=== PATIENT | female | born 1955 | race Caucasian/White ===

== ENCOUNTER → 2016-12-05 | Outpatient (CLI) | payer BC ==
[~2016-12-05] MED LIST: BUPR-83 PO; CALC500C70 PO; GABA-112 PO; MULT-506 PO
[2016-12-05 11:37] LABS: PFT COL EPI 200 SECONDS (80-184)
[2016-12-05 12:03] LABS: PFT COL ADP 160 SECONDS (56-102)
== END | disposition home or self-care (01) ==
LOC: C.LAB 10:43
PROVIDERS: ATTEND Family Medicine
DX: D69.1 Qualitative platelet defects (principal)

== ENCOUNTER → 2017-06-20 | Outpatient (CLI) | payer OTHER ==
--- NOTE | 2017-06-21 14:40 | MAMMOGRAPHY REPORT ---
BILATERAL DIGITAL SCREENING MAMMOGRAM TOMOSYNTHESIS WITH CAD: 06/20/2017 TECHNIQUE: Breast tomosynthesis in addition to standard 2D mammography was performed. Current study was also evaluated with a Computer Aided Detection (CAD) system. COMPARISON: Comparison is made to exams dated: 02/10/2016 mammogram, 01/27/2015 mammogram, 01/21/2014 ma mmogram, 06/20/2011 mammogram, 02/23/2010 mammogram - [facility], and 04/25/2007. BREAST COMPOSITION: There are scattered areas of fibroglandular density in both breasts. FINDINGS: No suspicious masses, calcifications, or areas of architectural distortion are noted in ei ther breast. There has been no significant interval change compared to prior exams. IMPRESSION: ACR BI-RADS CATEGORY 1: NEGATIVE There is no mammographic evidence of malignancy. A 1 year screening mammogram is recommended. The pa tient will receive written notification of the results. Approximately 10% of breast cancers are not detected with mammography. A negative mammographic report should not delay biopsy if a clinically suggestive mass is present. Mary Kay Cardenas M.D. ah/:06/20/2017 16:38:34 Cost Accounting Clerk: Ana Maria CLEMENT(Jeremi)(Maria C), [facility] letter sent: Normal 1/2 BI-RADS Code: ACR BI-RADS Category 1: Negative
== END | disposition home or self-care (01) ==
LOC: C.MAMM 16:25
PROVIDERS: ATTEND Family Medicine
DX: Z12.31 Encounter for screening mammogram for malignant neoplasm of breast (principal)

== ENCOUNTER 2019-09-08 12:36 | Inpatient (IN) ==
--- NOTE | 2019-09-08 13:11 | Emergency Department Note ---
Impression & Plan Atypical chest pain, Elevated troponin ED Provider Note NAME: WILLOW TOLBERT AGE: 63 SEX: F : 1955 ARRIVES VIA: Walk-In INFORMANT: Patient, ED PROVIDER(S): Lisandro Bell MD Chief Complaint: Chest pain HPI: Patient presents with a referral from the primary care provider as well as for chest pains. Patient states her chest pain began at 10 AM. It was central with radiation to the left neck and shoulder. ROS: See HPI for pertinent positives and negatives. A total of 10 systems were reviewed and otherwise negative. Past medical history: See below Surgical history: See below Social history: See below Physical Exam: GENERAL: Well appearing, well nourished, NAD, non-toxic. Wearing glasses and a mask. EYE EXAM: Normal conjunctiva. PERRL, no anisocoria and EOM's grossly intact w/o pain. NECK: Supple, no nuchal rigidity, no adenopathy, non-tender. No signs of meningismus. LUNGS: Clear to auscultation. Normal chest wall mechanics. HEART: NSR, no MRG. ABDOMEN: Abdomen soft, non-tender, normo-active bowel sounds, no masses, no rebound or guarding. BACK: No CVA TTP. SKIN: No rashes and no bruising. UPPER EXTREMITIES: Upper extremities are grossly normal. LOWER EXTREMITIES: Grossly normal, no edema. Negative Homans sign bilaterally. NEURO EXAM: A&O x3, cranial nerves II-XII grossly intact, normal speech, moves all 4 extremities on command w/o issue. Differential diagnoses: Cardiac ischemia, aortic dissection, pulmonary embolism, pneumothorax, pneumonia, pericarditis, myocarditis, esophageal rupture, GERD, cholecystitis, pancreatitis, musculoskeletal, as well as other pathologies. Course: Patient was seen and evaluated the bedside. A full history and physical exam was performed. Patient was informed of her findings. She did give me permission to speak with the niece. I did discuss the patient's current course of care with her niece. I did speak the on-call hospitalist and the patient was to be admitted. I did speak with Dr. Duarte without any cardiology who recommended to continue management but would defer heparin at this time unless the patient develops active chest pain, dynamic EKG changes, and or rising troponin. EKG: Indication: Chest pain Normal sinus rhythm, rate of 74, normal intervals, normal axis, no ST changes. No change from April 19, 2016. Imaging Studies: Radiology results as stated below per my review in the radiologist's interpretat ion: XR chest 1V portable CLINICAL HISTORY: 63 years-old Female presenting with Chest Pain. TECHNIQUE: Portable upright AP view of the chest was obtained. COMPARISON: None. FINDINGS: Cardiomediastinal silhouette normal. No focal opacity. No large effusion or pneumothorax. Degenerative changes of the thoracic spine. Upper abdomen normal. IMPRESSION: 1. No acute cardiopulmonary disease. ACT 112: Negative or not required by law. Cardiac monitoring: An order was placed for continuous cardiac monitoring. The monitor shows a rate of 80 with sinus rhythm. MDM: Patient was seen and evaluated the bedside. The patient did present for a brief episode of chest pain earlier this morning. The patient currently is chest pain-free. Blood work was obtained along with an EKG troponin and chest x-ray. Patient did have an elevated troponin. Patient was given full dose aspirin. Given the patient's elevated troponin with concerning story and risk factors believe the patient would benefit from continued cardiac enzyme trending. I did speak the on-call hospitalist as well as the on-call program coordinator executive education. No heparin at this time unless the patient has a change in symptoms. The patient was esteban bsequently admitted to the medicine service. 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 Feels Safe at Home: Yes Smoking Status: Never smoker Hx Alcohol Use: No Physical Activity Frequency: 3-4 Times per Week Physical Activity Frequency Comment: walks, but now has hurt knee Allergies Allergies Allergy/AdvReac Type Severity Reaction Status Date / Time iodine Allergy Mild rash Verified 09/08/19 13:44 Home Meds Home Medications Medication Instructions Recorded Confirmed cholecalciferol (vitamin D3) 4,000 4,000 units PO QAM 05/27/19 09/08/19 unit capsule calcium carbonate [Calcium 500] 500 mg PO QAM 09/08/19 09/08/19 pediatric multivitamin 1 tab PO HS 09/08/19 09/08/19 Results & Data (ED) Vital Signs Vital Signs - 24 hr 09/08/19 12:40 09/08/19 12:53 09/08/19 12:54 Temperature 36.7 C Temperature Source Oral Pulse Rate 76 77 Pulse Rate from SpO2 Sensor 77 Pulse Rhythm Regular Pulse Strength Normal Respiratory Rate 18 19 Respiratory Effort / Characteristics Non-Labored Spontaneous Respiratory Depth Normal Respiratory Pattern Regular Blood Pressure 161/70 H 158/69 H Blood Pressure Mean 100 97 Blood Pressure Position Sitting Pulse Oximetry 98 97 95 Oxygen Delivery Method Room Air Room Air Sepsis Recent Fever Within 48 Hours No Sepsis New/Unexplained Change in Mental Status No Sepsis Action Taken by Nursing No Action Required 09/08/19 12:58 09/08/19 13:00 09/08/19 13:30 Temperature Temperature Source Pulse Rate 80 82 75 Pulse Rate from SpO2 Sensor 78 71 76 Pulse Rhythm Pulse Strength Respiratory Rate 17 20 16 Respiratory Effort / Characteristics Respiratory Depth Respiratory Pattern Blood Pressure 134/72 138/66 Blood Pressure Mean 97 88 Blood Pressure Position Pulse Oximetry 96 96 96 Oxygen Delivery Method Sepsis Recent Fever Within 48 Hours Sepsis New/Unexplained Change in Mental Status Sepsis Action Taken by Nursing 09/08/19 14:00 09/08/19 14:30 Temperature Temperature Source Pulse Rate 81 80 Pulse Rate from SpO2 Sensor 79 78 Pulse Rhythm Pulse Strength Respiratory Rate 20 20 Respiratory Effort / Characteristics Respiratory Depth Respiratory Pattern Blood Pressure 150/88 H 161/76 H Blood Pressure Mean 106 95 Blood Pressure Position Pulse Oximetry 97 98 Oxygen Delivery Method Sepsis Recent Fever Within 48 Hours Sepsis New/Unexplained Change in Mental Status Sepsis Action Taken by Longterm Medications Current Medication List: was personally reviewed by me Laboratory Data Attestation: I reviewed the patient's lab results. Result diagrams: 09/08/19 13:10 09/08/19 13:10 Lab Results 09/08/19 09/08/19 09/08/19 Range/Units 13:10 13:10 13:10 WBC 5.34 (4.8-10.8) K/uL RBC 4.94 (4.2-5.4) M/uL Hgb 15.1 (12.0-16.0) g/dL Hct 44.6 (37-47) % MCV 90.3 (80-100) fL MCH 30.6 (25-34) pg MCHC 33.9 (32-36) g/dL RDW Std Deviation 43.7 (36.4-46.3) fL RDW Coeff of Arabella 13.3 (11.5-14.5) % Plt Count 215 (130-400) K/uL MPV 11.1 H (7.4-10.4) fL Immature Gran % (Auto) 0.2 % Neut % (Auto) 67.2 % Lymph % (Auto) 24.7 % Daniels % (Auto) 6.2 % Eos % (Auto) 1.3 % Baso % (Auto) 0.4 % Immature Gran # (Auto) 0.01 (0.00-0.02) K/uL Neut # (Auto) 3.59 (1.4-6.5) K/uL Lymph # (Auto) 1.32 (1.2-3.4) K/uL Daniels # (Auto) 0.33 (0.11-0.59) K/uL Eos # (Auto) 0.07 (0-0.5) K/uL Baso # (Auto) 0.02 (0-0.2) K/uL PT 10.6 (9.0-12.0) Seconds INR 1.0 (0.9-1.1) APTT 27.5 (21.0-31.0) Seconds PTT Ratio 1.0 Sodium 141 (136-145) mmol/L Potassium 3.9 (3.5-5.1) mmol/L Chloride 109 H (98-107) mmol/L Carbon Dioxide 31 (21-32) mmol/L Anion Gap 1.0 L (3-11) BUN 14 (7-18) mg/dl Creatinine 0.86 (0.6-1.2) mg/dl Est Cr Clr Drug Dosing 72.5 ml/min Est GFR ( Amer) 84.5 Est GFR (Non-Af Amer) 72.9 BUN/Creatinine Ratio 15.9 (10-20) Glucose 107 H (70-99) mg/dl Calcium 9.3 (8.5-10.1) mg/dl Total Bilirubin 0.3 (0.2-1) mg/dl AST 12 L (15-37) U/L ALT 20 (12-78) U/L Alkaline Phosphatase 99 (45-117) U/L Troponin I 0.137 H* (0-0.045) ng/ml Total Protein 6.9 (6.4-8.2) gm/dl Albumin 3.5 (3.4-5.0) gm/dl Globulin 3.4 (2.5-4.0) gm/dl Albumin/Globulin Ratio 1.0 (0.9-2) Lipase 85 (73-393) U/L Administered Medications Discontinued Medications Aspirin (Aspirin) 324 mg PO NOW STA Stop: 09/08/19 13:57 Last Admin: 09/08/19 14:03 Dose: 324 mg Documented by: [id number] Blood Pressure Blood Pressure Findings: Elevated blood pressure Blood Pressure Disposition: further management by hospitalist Discharge Plan Visit Data *Final* Discharge Date/Time: 09/08/19 14:51 Chief Complaint: Chest Pain Stated Complaint: chest pain ED Provider: Lisandro Bell Discharge Problem: Atypical chest pain, Elevated troponin Patient Disposition: Admitted As Inpatient Discharge Instructions Interventions: ED Discharge Assessment Last Done: 09/08/19 14:51
[2019-09-08 13:24] LABS: Basophils # (auto) 0.02 K/uL (0-0.2); Basophils % (auto) 0.4 %; Eosinophils # (auto) 0.07 K/uL (0-0.5); Eosinophils % (auto) 1.3 %; Hematocrit (blood only) 44.6 % (37-47); Hemoglobin 15.1 g/dL (12.0-16.0); Immature Granulocytes # (auto) 0.01 K/uL (0.00-0.02); Immature Granulocytes % (auto) 0.2 %; Lymphocytes # (auto) 1.32 K/uL (1.2-3.4); Lymphocytes % (auto) 24.7 %; Mean Corpuscular Hemoglobin 30.6 pg (25-34); Mean Corpuscular Hgb Conc 33.9 g/dL (32-36); Mean Corpuscular Volume 90.3 fL (80-100); Mean Platelet Volume 11.1 fL (7.4-10.4); Monocytes # (auto) 0.33 K/uL (0.11-0.59); Monocytes % (auto) 6.2 %; Neutrophils # (auto) 3.59 K/uL (1.4-6.5); Neutrophils % (auto) 67.2 %; Platelet Count 215 K/uL (130-400); RDW Coefficient of Variation 13.3 % (11.5-14.5); RDW Standard Deviation 43.7 fL (36.4-46.3); Red Blood Count 4.94 M/uL (4.2-5.4); White Blood Count 5.34 K/uL (4.8-10.8)
--- NOTE | 2019-09-08 13:33 | Electrocardiogram Report ---
Test Reason : Blood Pressure : / mmHG Vent. Rate : 074 BPM Atrial Rate : 074 BPM P-R Int : 154 ms QRS Dur : 094 ms QT Int : 368 ms P-R-T Axes : 047 028 057 degrees QTc Int : 408 ms Normal sinus rhythm Normal ECG When compared with ECG of 19-APR-2016 12:35, No significant change was found Confirmed by Mati Duarte ([id number]) on 09/08/2019 1:32:49 PM Referred By: SELF Confirmed By:Mati Duarte
[2019-09-08 13:36] LABS: Partial Thromboplastin Time 27.5 Seconds (21.0-31.0); Prothrombin Time 10.6 Seconds (9.0-12.0)
[2019-09-08 13:41] LABS: Albumin Level 3.5 gm/dl (3.4-5.0); BUN Creatinine Ratio 15.9 (10-20); Calcium 9.3 mg/dl (8.5-10.1); Creatinine Clr Calc Pharmacy 72.5 ml/min; Est GFR (African American) 84.5; Est GFR (Non-African American) 72.9; Potassium 3.9 mmol/L (3.5-5.1)
[2019-09-08 13:49] LABS: Bilirubin,Total 0.3 mg/dl (0.2-1); Globulin 3.4 gm/dl (2.5-4.0); Total Protein 6.9 gm/dl (6.4-8.2); Troponin I 0.137 ng/ml (0-0.045)
[2019-09-08] MEDS ORDERED: NITROGLYCERIN SL 0.4 MG/TAB TAB SL PRN ×2 (13:56→15:34)
[2019-09-08] MEDS ORDERED: ASPIRIN CHEW 324 MG PO STA (13:56)
--- NOTE | 2019-09-08 14:00 | XRay Report ---
XR chest 1V portable CLINICAL HISTORY: 63 years-old Female presenting with Chest Pain. TECHNIQUE: Portable upright AP view of the chest was obtained. COMPARISON: None. FINDINGS: Cardiomediastinal silhouette normal. No focal opacity. No large effusion or pneumothorax. Degenerativ e changes of the thoracic spine. Upper abdomen normal. IMPRESSION: 1. No acute cardiopulmonary disease. ACT 112: Negative or not required by law. Electronically signed by: Zack Rainey M.D. 09/08/2019 1:59 PM
[2019-09-08] MEDS ORDERED: ALUMINUM/MAGNESIUM SUSP 18 ML, LIDOCAINE HCL VISCOUS 2% 6 ML, BARCODE IDENTIFIER 1 EA PO ONE ×2 (14:27→20:34)
--- NOTE | 2019-09-08 14:41 | History & Physical Report ---
Date of Service September 08, 2019 Assessment & Plan (1) Chest pain: Concerning given pt's age and FH Trop mildly elevated at 0.137, serials pending EKG WNL CXR WNL CBC, PRP, lipase WNL ED spoke with Dr. Duarte who recs for monitoring. No heparin unless repeat sx or further increase in trop c/s pending If trop is stable, pt should likely have ECHO vs stress ECHO tomorrow, will not order until serials trops resulted Trial of GI cocktail (2) DVT prophylaxis: SCDs History of Present Illness Primary Care Provider: Dariel Munoz MD 63 y/o F c/o chest pain. Pt states she was working from home today, which she has been doing the last few weeks. She noted some L shoulder pain that moved into her arm. She thought it was related to the fact that her home "office" is working on a laptop while sitting on her couch rather than her usual office desk set up. She tried to move her arm around and then had onset of pain into her entire jaw. This became more alarming to her so she decided she should come to the ED. While she was upstairs getting dressed to come here, she had onset of central to L sided chest pain. This last about 5 minutes and occurred around 10:00a. She came to the ED and had no further pain until about 2 minutes AFTER I palpated pt's chest. She states it was more of a burning sensation. Pt states she ate "a lot of oreos" last night just prior to bed. She states she eats these often, but not in that volume. Pt has never had chest pain prior. She does state that last week she had some pain along the L side of her neck into her shoulder, but that felt muscular to her. Pt states that about 2-3x/year she will have L sided jaw pain that she thinks is dental related. She takes a tylenol and it resolves. She has never had pain to her entire jaw. Pt denies fever, SOB, abd pain, n/v/c/d, LE pain or swelling. 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 Feels Safe at Home: Yes Smoking Status: Never smoker Hx Alcohol Use: No Physical Activity Frequency: 3-4 Times per Week Physical Activity Frequency Comment: walks, but now has hurt knee Review of Systems Review of Systems: Pertinent positives and negatives reviewed in HPI--all others negative Physical Exam Constitutional: WD/WN, vitals as above Eyes: normal visual packer by confrontation and + anicteric sclerae Neck: normal visual inspection and trachea midline Respiratory: normal respiratory effort, lungs clear to auscultation Cardiovascular: Rate/Rhythm: regular rate and regular rhythm Chest (Breasts): Additional Comments: chest wall nonTTP Gastrointestinal (Abdomen): Inspection/Auscultation: abdomen not distended Percussion/Palpation: abdomen soft; abdomen nontender Musculoskeletal: Head/Neck/Chest: normocephalic and head atraumatic negative for edema, peripheral pulses intact L trap/neck nonTTP Skin: no rashes, warm and dry Neurologic: awake; not confused Speech / Cognition: normal speech Psychiatric: A+Ox3, euthymic affect Results & Data Results & Data ([facility]) Vital Signs (Past 12 Hours) Vital Signs Temp Pulse Resp BP Pulse Ox 09/08/19 14:00 81 20 150/88 H 97 09/08/19 13:30 75 16 138/66 96 09/08/19 13:00 82 20 134/72 96 09/08/19 12:58 80 17 96 09/08/19 12:54 95 09/08/19 12:53 77 19 158/69 H 97 09/08/19 12:40 36.7 C 76 18 161/70 H 98 Diagnostic Findings CXR: neg for acute ECG Rhythm: normal sinus Code Status & VTE Plan Code Status Full code VTE Prophylaxis Plan VTE Prophylaxis will be ordered: Yes PG Care Time/CCT Total # of Minutes Spent Total Time Spent with Patient: Total time spent is greater than 50% in coordination of care (as documented) at patient's floor/unit and/or counseling patient: Coding Level of Care Code 34523 OBS Care - Level 3 Diagnoses Chest pain R07.9 DVT prophylaxis Z29.9
[2019-09-08] MEDS ORDERED: ONDANSETRON INJ 2 MG/ML 2 ML VIAL IV PRN (15:34)
[2019-09-08] MEDS ORDERED: MAGNESIUM HYDROXIDE SUSP 30 ML UDC PO PRN (15:34)
[2019-09-08] MEDS ORDERED: ACETAMINOPHEN 325 MG TAB PO PRN (15:34)
[2019-09-08] MEDS ORDERED: Heparin IV Standard *NO* Bolus IV ONE (20:36)
[2019-09-08] MEDS ORDERED: HEPARIN SODIUM/DEXTROSE 25,000 UNITS/500 ML BAG IV SCH (20:45)
[2019-09-08] MEDS ORDERED: FLINTSTONES COMPLETE CHEWABLE TAB PO SCH (21:00)
[2019-09-09 04:02] LABS: Chol HDL Ratio 5; Cholesterol 187 mg/dl (0-200); HDL Cholesterol 42 mg/dl; LDL Cholesterol Calculated 116 mg/dl; Triglycerides 143 mg/dl (0-150); VLDL Cholesterol 29 mg/dl
[2019-09-09 04:12] LABS: Partial Thromboplastin Ratio 3.5
[2019-09-09 04:52] LABS: Partial Thromboplastin Time 98.1 Seconds (21.0-31.0)
[2019-09-09 05:50] LABS: Estimated Average Glucose 105 mg/dl; Hemoglobin A1C 5.3 % (4.5-5.6)
[2019-09-09] MEDS ORDERED: CHOLECALCIFEROL 1,000 UNITS 25 MCG TAB PO SCH (09:00)
[2019-09-09] MEDS ORDERED: CALCIUM CARBONATE 1250MG TAB PO SCH (09:00)
--- NOTE | 2019-09-09 09:21 | XCELERA ---
[id number] \\[email or web address]\PDF_[id number]
--- NOTE | 2019-09-09 11:31 | Cardiology Consultation ---
Date of Consultation September 09, 2019 Assessment & Plan (1) Atypical chest pain: The patient's description of chest discomfort is not consistent with classic angina pectoris. However, we will proceed with stress echocardiogram realizing her elevated cardiac markers. (2) Elevated troponin: Mild elevation is of uncertain clinical significance. Would discontinue heparin. (3) Tricuspid regurgitation: Mild in degree on current echocardiogram. History of Present Illness Attending Physician: Olayinka Lim DO History of Present Illness Mrs. Restrepo is a 63 yo female admitted yesterday with a chest pain syndrome. This consultation was ordered to assist in her cardiac management. The patient was in her usual state of health until the morning of presentation when she had the abrupt onset of a substernal chest pressure. Total duration over discomfort was 5 minutes. There were no associated symptoms such as shortness of breath, nausea, vomiting, or diaphoresis. The discomfort occurred while she was at rest. The patient has never experienced exertional angina pectoris or limiting dyspnea. She further denies syncope, presyncope, PND, orthopnea, palpitations, lower extremity edema, and claudication. The patient has never known of a cardiac event. She has never had a cardiac catheterization or stress test. Currently, patient is resting comfortably at the bedside and without complaints. Past medical and surgical history 1. Vitamin-D deficiency 2. Cystocele 3. History of ITP-age 43 4. 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 Feels Safe at Home: Yes Safety Concerns: Feels Safe At This Time Smoking Status: Never smoker Hx Alcohol Use: No Hx Substance Use: No Physical Activity Frequency: 3-4 Times per Week Physical Activity Frequency Comment: walks, but now has hurt knee Physical Exam Physical Exam: In general this is a well-developed well-nourished white female in no acute distress. HEENT exam is negative. Neck is supple with full carotid upstrokes. There are no carotid bruits. Jugular venous pressure is flat at 90. There is no thyromegaly. Cardiovascular exam reveals a regular rhythm with a normal S1 and S2. No S3, S4, or murmurs are noted. Lungs are clear without rales, rhonchi, or wheezes. Abdomen is soft and nontender without bru its. Extremities reveal intact radial artery and posterior tibial pulses bilaterally. There is no peripheral edema. Results & Data ([facility]) Vital Signs (Past 12 Hours) Vital Signs Temp Pulse Pulse Resp BP Pulse Ox 09/09/19 07:45 88 09/09/19 07:34 36.8 C 65 18 151/90 H 97 09/09/19 04:38 36.6 C 64 17 157/78 H 96 09/08/19 23:50 36.7 C 63 18 151/84 H 96 Laboratory Results CBC notes a hemoglobin of 15.1, hematocrit 44.6, white count 5.3, platelet count [id number]. Electrolytes notice sodium of 141, potassium 3.9, chloride 109, bicarb 31, BUN 14, creatinine 0.86, glucose of 107. Initial troponin I level was 0.137 with follow-up values of 0.218 and 0.125. LDL cholesterol is 116 with an HDL of 42. Diagnostic Findings EKG notes normal sinus rhythm without abnormalities. Echocardiogram notes normal left ventricular systolic function without wall motion abnormalities. Left ventricular ejection fraction is 60-65%. There is borderline LVH and mild tricuspid regurgitation. Chest x-ray shows no acute disease. PG Care Time/CCT Total # of Minutes Spent Total Time Spent with Patient: Total time spent is greater than 50% in coordination of care (as documented) at patient's floor/unit and/or counseling patient: Coding Level of Care Code 74747 Inpt Consult Level 4 Diagnoses Atypical chest pain R07.89 Elevated troponin R79.89 Tricuspid regurgitation I07.1
--- NOTE | 2019-09-09 13:13 | XCELERA ---
[id number] \\[email or web address]\PDF_[id number]
--- NOTE | 2019-09-09 16:14 | Discharge Summary ---
Date of Service September 09, 2019 Admission HPI Per Admitting Provider 63 y/o F c/o chest pain. Pt states she was working from home today, which she has been doing the last few weeks. She noted some L shoulder pain that moved into her arm. She thought it was related to the fact that her home "office" is working on a laptop while sitting on her couch rather than her usual office desk set up. She tried to move her arm around and then had onset of pain into her entire jaw. This became more alarming to her so she decided she should come to the ED. While she was upstairs getting dressed to come here, she had onset of central to L sided chest pain. This last about 5 minutes and occurred around 10:00a. She came to the ED and had no further pain until about 2 minutes AFTER I palpated pt's chest. She states it was more of a burning sensation. Pt states she ate "a lot of oreos" last night just prior to bed. She states she eats these often, but not in that volume. Pt has never had chest pain prior. She does state that last week she had some pain along the L side of her neck into her shoulder, but that felt muscular to her. Pt states that about 2-3x/year she will have L sided jaw pain that she thinks is dental related. She takes a tylenol and it resolves. She has never had pain to her entire jaw. Pt denies fever, SOB, abd pain, n/v/c/d, LE pain or swelling. Principal Diagnosis Chest pain, atypical Discharge Exam Constitutional WD/WN, vitals as above Eyes PERRL, conjunctivae normal, anicteric sclerae ENMT external ear and nose normal, oropharynx normal Neck trachea midline, no thyromegaly Respiratory normal respiratory effort, lungs clear to auscultation Cardiovascular RRR, no murmur, no edema Gastrointestinal (Abdomen) normal bowel sounds, soft, nontender, no hepatosplenomegaly Musculoskeletal no cyanosis or clubbing, extremities motor strength 5/5 Skin no rashes, warm and dry Neurologic patellar DTR's 2+ bilat, sensation intact and PERRL, EOMI, accommodation nl, no face palsy, no dysarthria Psychiatric A+Ox3, euthymic affect Lymphatic no cervical or axillary lymphadenopathy Discharge Data Allergies Allergy/AdvReac Type Severity Reaction Status Date / Time iodine Allergy Mild rash Verified 09/08/19 13:44 Consultations 09/08/19 14:10 ED Decision to Admit Stat 09/08/19 15:34 Consult Cardiology Routine Hospital Course (1) Chest pain: 5 minutes of left arm pain, jaw pain and chest pain at home while at rest never had this before EKG without ischemic changes did not have diaphoresis, nausea, dyspnea troponin bumped minimally, from 0.1 to 0.2 and then 0.1 no wall motion changes on echocardiogram d/w Dr. Duarte, agreed to perform stress echo to better risk stratify patient stress echo was normal, patient okay to go home no major risk factors for coronary disease other than her father who at age 61 from [place] BP elevated here but no h/o HTN, non-smoker, HbA1c normal, lipids at goal recommend follow up with PCP in a few months for blood pressure check Total Time Total Time Spent Total Time Spent (In Minutes): 33 minutes Total Time Includes: Examination of the Patient, Discharge Planning, Medication Reconciliation and Communication With Other Providers (Dr Duarte) Discharge Plan Discharge Items Patient Disposition: Home - Self-Care Reason For Visit: ELEVATED TROP Discharge Diagnosis: Chest pain Condition on Discharge: Good Goals: get rest, stay well nourished and well hydrated follow up with Dr. Munoz in three months for blood pressure check Activity: Resume your previous activity Bathing: No limitations Driving/Machine Use: No limitations Weightbearing: Full weightbearing Non-emergency contact: Primary Care Provider Call non-emergency contact if: you have any medication questions, your symptoms worsen and you have a fever Follow-up/Referrals: Dariel Munoz MD [Primary Care Provider] - 12/08/19 12:50 pm (3 months) Diet: Regular Addtl Attending Provider Instructions: Medications: no changes Chest pain, atypical negative stress echocardiogram, no need for further work up very low risk factors for CAD other than a family history of your father having [place] cholesterol is at goal, Hemoglobin A1c normal so you do not have diabetes, do not smoke your blood pressure was a little high while here but this was due to stress, you have no history of hypertension recommend that you follow up with Dr. Munoz in three months for a routine blood pressure check Pending Studies at Discharge: No Stand-Alone Forms: My [facility], Smoking Cessation Medications and DC Order Prescriptions: Continued Vitamin D3 4,000 unit capsule 4,000 units PO QAM RF: 0 pediatric multivitamin Tablet,Chewable 1 tab PO HS RF: 0 calcium carbonate [Calcium 500] 500 mg calcium (1,250 mg) Tablet,Chewable 500 mg PO QAM RF: 0 Discharge Orders: Discharge Order (Routine); Ordered 09/09/19 Ordered By: Olayinka Lim Admission Data Admit Date/Time: 09/08/19 14:33 Attending Provider: Olayinka Lim Admit Provider: Radha Ham Primary Care Provider: Dariel Munoz Other Providers: Radha Ham ; Mati Duarte Other Interventions: Discharge Summary Assessment (RN) Last Done: 09/09/19 11:28 DC Date/Time DO NOT enter until pt leaves facility: 09/09/19 11:56 Coding Level of Care Code 14280 OBS Care - Discharge Diagnoses Chest pain R07.9
== END 2019-09-09 11:56 | disposition home or self-care (01) | DRG 313 ==
LOC: ED 12:36 → SUATTDRO 14:33 → 2E 14:33

== ENCOUNTER 2019-11-26 08:54 | Observation (INO) ==
[2019-11-26] MEDS ORDERED: KETOROLAC TROMETHAMINE 15 MG/ML VIAL IV STA (09:22)
[2019-11-26] MEDS ORDERED: ONDANSETRON INJ 2 MG/ML 2 ML VIAL IV STA (09:22)
[2019-11-26] MEDS ORDERED: SODIUM CHLORIDE 0.9% 1000ML 1,000 ML IV SCH (09:23)
--- NOTE | 2019-11-26 09:32 | Emergency Department Note ---
History of Present Illness General Chief complaint: Vomiting Stated complaint: VOMITING Time Seen by Provider: 11/26/19 09:00 History of Present Illness Maximum Pain Intensity: 8 Patient is a 63-year-old female who generally enjoys good health, who presents the emergency department for evaluation of nausea and vomiting since 1399 yesterday afternoon. Patient reports that on Sunday, 2 days ago, she used an old spaghetti sauce from the refrigerator and a dinner. She ate the food on without problems, had it again for lunch yesterday around 1400, she states that before she was even done eating, she began to feel nauseous experience abdominal bloating, and subsequently began vomiting. She estimates that she has thrown up roughly 30 times, last episode of vomiting was just prior to her leaving her home to come to the emergency department. She reports generalized body and muscle aches, but no fever or chills. No diarrhea. No urinary symptoms. No hematemesis. She had Zofran at home, she tried a total of 4 doses without relief. She notes diffuse abdominal discomfort, but states that it is primarily located in the right lower quadrant, she feels like she "pulled a muscle." She rates her discomfort an 8/10. She denies any other unusual food or water consumption, no sick contacts at home, she has been working remotely and has had no work contacts. She is status post , no other abdominal surgeries. 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 Feels Safe at Home: Yes Smoking Status: Never smoker Hx Alcohol Use: No Hx Substance Use: No Physical Activity Frequency: 3-4 Times per Week Physical Activity Frequency Comment: walks, but now has hurt knee Review of Systems A total of 10 systems reviewed and were otherwise negative Physical Exam Vital Signs Vital Signs - 24 hr 11/26/19 08:58 11/26/19 10:51 11/26/19 11:19 Temperature 37.1 C Temperature Source Oral Pulse Rate 83 Pulse Rate [Finger] 72 63 Pulse Rhythm [Finger] Regular Respiratory Rate 18 16 18 Respiratory Effort / Characteristics Non-Labored Respiratory Depth Normal Blood Pressure 136/90 Blood Pressure [Right Arm] 148/88 H 139/72 Blood Pressure Mean 105 Blood Pressure Mean [Right Arm] 108 94 Blood Pressure Position Sitting Pulse Oximetry 98 100 99 Oxygen Delivery Method Room Air Room Air Room Air Sepsis Recent Fever Within 48 Hours No Sepsis Action Taken by Nursing No Action Required CONSTITUTIONAL: Patient is an ill although nontoxic appearing 63-year-old female who is awake and alert and in no acute distress. EYES: Pupils equal, round, reactive to light and accommodation. EOMs intact without nystagmus. Sclera are anicteric. ENT: Tympanic membranes intact, with normal landmarks. External canals are clear. Oral and nasopharynx are clear. Mucous membranes are dry, no lesions, tongue and gums appear normal. CARDIOVASCULAR: Regular rate and rhythm, with normal S1 and S2, no murmur or gallop or rub is heard. No carotid bruits auscultated. No JVD. Peripheral pulses easily palpable. RESPIRATORY: Breath sounds equal and clear to auscultation without wheezes, rales, or rhonchi heard. Full and equal chest expansion without accessory muscle use or retractions. ABDOMEN: Bowel sounds are present, hypoactive. Abdomen is soft, slightly distended, mildly tender throughout to percussion and moderately tender to palpation throughout the abdomen, with increased discomfort in the right lower quadrant with voluntary guarding. INTEGUMENTARY: No lesions or rash, normal skin turgor. LYMPH: No lymphadenopathy. Course Course The patient was seen and assessed as above. Old records were reviewed. IV lock was initiated and laboratory studies were collected. She was hydrated with a liter bolus of normal saline solution medicated with Zofran 4 mg IV and Toradol 15 mg IV for abdominal discomfort and myalgias. She was made n.p.o. CBC with differential, CMP, lipase and urinalysis were ordered. Patient history and presentation were reviewed with physician and ED work-up was agreed upon. Laboratory studies noted an elevated white count 14,600 with left shift and bands. No anemia. Electrolytes within normal limits. Renal functions are normal. Transaminases are not elevated and lipase is within normal limits. Urine microscopy notes 1+ ketones, 2+ blood, 10-30 WBCs and RBCs 1+ bacteria with greater than 30 epithelial cells indicative of contamination. The patient is not experiencing any UTI symptoms, urine culture is ordered and is pending. Patient was reassessed when her labs had returned. She reported that she was feeling better. 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 Discussed with her that given the location of her discomfort as well as her symptoms, CT scan of the abdomen pelvis with IV contrast was appropriate. She has an allergy to topical iodine, to the best of her knowledge she has never had a CT scan with IV contrast. The patient was premedicated with Solu-Medrol 125 mg IV, Benadryl 50 mg IV and Pepcid [address] scan of the abdomen and pelvis with IV contrast was obtained, patient tolerated the IV contrast without difficulty or symptoms. CT scan findings are consistent with acute appendicitis, no evidence for free air, abscess or perforation. No other acute findings in the abdomen or pelvis. CT scan findings were reviewed with the patient, she was discussed with general surgery, Dr. Penny and Liya Meza PA-C. They will take her to the OR later today for surgical intervention. Administered Medications Ioversol (Optiray 320 100ml) 94 ml IV ONCE PRN PRN Reason: Interaction Checking Stop: 11/30/19 10:59 Last Admin: 11/26/19 11:00 Dose: 94 ml Documented by: [id number] Discontinued Medications Diphenhydramine HCl (Benadryl) 50 mg IV NOW STA Stop: 11/26/19 10:26 Last Admin: 11/26/19 10:49 Dose: 50 mg Documented by: [id number] Sodium Chloride (Nss 1000ml) 1,000 mls @ 999 mls/hr IV .Q1H1M JESUS Stop: 11/26/19 10:23 Last Infusion: 11/26/19 11:01 Dose: 0 mls/hr Documented by: [id number] Admin: 11/26/19 10:00 Dose: 999 mls/hr Documented by: [id number] Famotidine (Pepcid 20mg Iv Push) 20 mg in 5 mls @ 2.5 mls/min IV NOW STA Stop: 11/26/19 10:26 Last Admin: 11/26/19 10:48 Dose: 2.5 mls/min Documented by: [id number] Ketorolac Tromethamine (Toradol) 15 mg IV NOW STA Stop: 11/26/19 09:23 Last Admin: 11/26/19 09:59 Dose: 15 mg Documented by: [id number] Methylprednisolone (Solumedrol) 125 mg IV NOW STA Stop: 11/26/19 10:26 Last Admin: 11/26/19 10:49 Dose: 125 mg Documented by: [id number] Ondansetron HCl (Zofran) 4 mg IV NOW STA Stop: 11/26/19 09:23 Last Admin: 11/26/19 09:59 Dose: 4 mg Documented by: [id number] Medical Decision Making Differential Diagnosis Differential diagnoses entertained included UTI, pyelonephritis, infectious versus inflammatory colitis/enteritis, foodborne illness, acute appendicitis, mass or malignancy, perforation, acute diverticulitis, among others. Medical Records Attestation: I reviewed the patient's medical records. Home Medications Current Medication List: was personally reviewed by me Laboratory Data Attestation: I reviewed the patient's lab results. Result diagrams: 11/26/19 09:34 11/26/19 09:34 Lab Results 11/26/19 11/26/19 11/26/19 Range/Units 09:34 09:34 10:00 WBC 14.65 H (4.8-10.8) K/uL RBC 4.94 (4.2-5.4) M/uL Hgb 15.1 (12.0-16.0) g/dL Hct 44.7 (37-47) % MCV 90.5 (80-100) fL MCH 30.6 (25-34) pg MCHC 33.8 (32-36) g/dL RDW Std Deviation 42.5 (36.4-46.3) fL RDW Coeff of Arabella 12.9 (11.5-14.5) % Plt Count 209 (130-400) K/uL MPV 11.3 H (7.4-10.4) fL Immature Gran % (Auto) 0.3 % Neut % (Auto) 87.8 % Lymph % (Auto) 5.9 % Howard % (Auto) 5.9 % Eos % (Auto) 0.0 % Baso % (Auto) 0.1 % Immature Gran # (Auto) 0.05 H (0.00-0.02) K/uL Neut # (Auto) 12.87 H (1.4-6.5) K/uL Lymph # (Auto) 0.86 L (1.2-3.4) K/uL Howard # (Auto) 0.86 H (0.11-0.59) K/uL Eos # (Auto) 0.00 (0-0.5) K/uL Baso # (Auto) 0.01 (0-0.2) K/uL Sodium 140 (136-145) mmol/L Potassium 3.7 (3.5-5.1) mmol/L Chloride 107 (98-107) mmol/L Carbon Dioxide 29 (21-32) mmol/L Anion Gap 4.0 (3-11) BUN 15 (7-18) mg/dl Creatinine 0.89 (0.6-1.2) mg/dl Est Cr Clr Drug Dosing 64.6 ml/min Est GFR ( Amer) 81.1 Est GFR (Non-Af Amer) 70.0 BUN/Creatinine Ratio 16.8 (10-20) Glucose 133 H (70-99) mg/dl Calcium 9.3 (8.5-10.1) mg/dl Total Bilirubin 0.6 (0.2-1) mg/dl AST 9 L (15-37) U/L ALT 20 (12-78) U/L Alkaline Phosphatase 92 (45-117) U/L Total Protein 7.5 (6.4-8.2) gm/dl Albumin 3.6 (3.4-5.0) gm/dl Globulin 3.9 (2.5-4.0) gm/dl Albumin/Globulin Ratio 0.9 (0.9-2) Lipase 46 L (73-393) U/L Urine Color Dark Yellow Urine Appearance Turbid A (Clear) Urine pH 5.0 (4.5-7.5) Ur Specific [place] 1.027 (1.000-1.030) Urine Protein 1+ H (Negative) Urine Glucose (UA) Negative (Negative) Urine Ketones 1+ H (Negative) Urine Blood 2+ H (Negative) Urine Nitrite Negative (Negative) Urine Bilirubin Negative (Negative) Urine Urobilinogen Negative (Negative) Ur Leukocyte Esterase Negative (Negative) Urine WBC (Auto) 10-30 H (0-5) /hpf Urine RBC (Auto) 10-30 H (0-4) /hpf U Hyaline Cast (Auto) 1-5 (0-5) /lpf U Epithel Cells (Auto) >30 H (0-5) /lpf Urine Bacteria (Auto) 1+ H (Negative) Imaging Data Attestation: I personally reviewed and interpreted this imaging study as follows: Radiologist's Impression: CT OF THE ABDOMEN AND PELVIS WITH CONTRAST CLINICAL HISTORY: RLQ PAIN, N/V X 18 HOURS COMPARISON STUDY: None. TECHNIQUE: Following IV administration of 94 mL of Optiray-320, axial images of the abdomen and pelvis were obtained from the lung bases to the proximal femurs. Images were reviewed in the axial, sagittal, and coronal planes. IV contrast was administered without complication. Automated exposure control was utilized for the study. A dose lowering technique was utilized adhering to the principles of ALARA. CT DOSE: 417.36 mGy.cm FINDINGS: No pneumatosis, free air or portal venous gas is present. The liver, spleen, adrenal glands, kidneys and pancreas are unremarkable. There are left- sided renal parapelvic cysts. There is no hydronephrosis. No biliary or pancreatic ductal dilatation is identified. There is no evidence for a bowel obstruction. The appendix is dilated, measuring 1.1 cm. The appendix is fluid- filled. Wall thickening of the appendix is noted with mild adjacent inflammation. No free air or abscess is present. No suspicious osseous lesions are noted. Major vasculature is patent. IMPRESSION: Acute appendicitis. No free air or abscess. Blood Pressure Blood Pressure Findings: Elevated blood pressure Blood Pressure Disposition: elevated BP felt to be situational MDM Narrative See ED Course. Impression & Plan Acute appendicitis Discharge Plan Visit Data Chief Complaint: Vomiting Stated Complaint: VOMITING ED Provider: Arik Canela ED Midlevel Provider: Nay Appiah Discharge Problem: Acute appendicitis Patient Disposition: Being Evaluated by Surgeon Forms Stand Alone Forms: [facility] [employer] Prescriptions Prescriptions: No Action Vitamin D3 4,000 unit capsule 4,000 units PO QAM RF: 0 pediatric multivitamin Tablet,Chewable 1 tab PO HS RF: 0 calcium carbonate [Calcium 500] 500 mg calcium (1,250 mg) Tablet,Chewable 500 mg PO QAM RF: 0 Referrals Referrals: Dariel Munoz MD [Primary Care Provider] - Discharge Problem: Acute appendicitis Qualifiers: Acute appendicitis type: with localized peritonitis Appendicitis gangrene presence: without gangrene Appendicitis perforation presence: without perforation Appendicitis abscess presence: without abscess Qualified Code(s): K35.30 - Acute appendicitis with localized peritonitis, without perforation or gangrene
[2019-11-26 09:48] LABS: Basophils # (auto) 0.01 K/uL (0-0.2); Basophils % (auto) 0.1 %; Hematocrit (blood only) 44.7 % (37-47); Hemoglobin 15.1 g/dL (12.0-16.0); Immature Granulocytes # (auto) 0.05 K/uL (0.00-0.02); Immature Granulocytes % (auto) 0.3 %; Lymphocytes # (auto) 0.86 K/uL (1.2-3.4); Lymphocytes % (auto) 5.9 %; Mean Corpuscular Hemoglobin 30.6 pg (25-34); Mean Corpuscular Hgb Conc 33.8 g/dL (32-36); Mean Corpuscular Volume 90.5 fL (80-100); Mean Platelet Volume 11.3 fL (7.4-10.4); Monocytes # (auto) 0.86 K/uL (0.11-0.59); Monocytes % (auto) 5.9 %; Neutrophils # (auto) 12.87 K/uL (1.4-6.5); Neutrophils % (auto) 87.8 %; Platelet Count 209 K/uL (130-400); RDW Coefficient of Variation 12.9 % (11.5-14.5); RDW Standard Deviation 42.5 fL (36.4-46.3); Red Blood Count 4.94 M/uL (4.2-5.4); White Blood Count 14.65 K/uL (4.8-10.8)
[2019-11-26 10:10] LABS: Albumin Level 3.6 gm/dl (3.4-5.0); BUN Creatinine Ratio 16.8 (10-20); Calcium 9.3 mg/dl (8.5-10.1); Creatinine Clr Calc Pharmacy 64.6 ml/min; Est GFR (African American) 81.1; Potassium 3.7 mmol/L (3.5-5.1)
[2019-11-26 10:13] LABS: Albumin Globulin Ratio 0.9 (0.9-2); Bilirubin,Total 0.6 mg/dl (0.2-1); Globulin 3.9 gm/dl (2.5-4.0); Total Protein 7.5 gm/dl (6.4-8.2)
[2019-11-26] MEDS ORDERED: FAMOTIDINE 20MG IV PUSH 20 MG/5 ML SYR IV STA (10:25)
[2019-11-26] MEDS ORDERED: DiphenhydrAMINE HCL 50 MG/ML VIAL IV STA (10:25)
[2019-11-26] MEDS ORDERED: methylPREDNISolone 125 MG/2 ML VIAL IV STA (10:25)
[2019-11-26 10:29] LABS: Appearance Urine Turbid (Clear); Bacteria Urine Automated 1+ (Negative); Blood Urine 2+ (Negative); Color Urine Dark Yellow; Epithelial Cell Urine Auto >30 /lpf (0-5); Glucose Urine UA Negative (Negative); Ketones Urine 1+ (Negative); Leukocyte Esterase Urine Negative (Negative); Nitrite Urine Negative (Negative); Protein Urine 1+ (Negative); Specific Gravity Urine 1.027 (1.000-1.030); Urobilinogen Urine Negative (Negative)
[2019-11-26 10:41] LABS: Bilirubin Urine Negative (Negative); Ictotest Urine Negative (Negative)
[2019-11-26] MEDS ORDERED: IOVERSOL 100ml IV PRN (11:00)
--- NOTE | 2019-11-26 11:18 | CT Scan Report ---
CT OF THE ABDOMEN AND PELVIS WITH CONTRAST CLINICAL HISTORY: RLQ PAIN, N/V X 18 HOURS COMPARISON STUDY: None. TECHNIQUE: Following IV administration of 94 mL of Optiray-320, axial images of the abdomen and pelvi s were obtained from the lung bases to the proximal femurs. Images were reviewed in the axial, sagitt al, and coronal planes. IV contrast was administered without complication. Automated exposure contro l was utilized for the study. A dose lowering technique was utilized adhering to the principles of A EDGAR. CT DOSE: 417.36 mGy.cm FINDINGS: No pneumatosis, free air or portal venous gas is present. The liver, spleen, adrenal glands , kidneys and pancreas are unremarkable. There are left-sided renal parapelvic cysts. There is no hyd ronephrosis. No biliary or pancreatic ductal dilatation is identified. There is no evidence for a bow el obstruction. The appendix is dilated, measuring 1.1 cm. The appendix is fluid-filled. Wall thicken ing of the appendix is noted with mild adjacent inflammation. No free air or abscess is present. No s uspicious osseous lesions are noted. Major vasculature is patent. IMPRESSION: Acute appendicitis. No free air or abscess. ACT 112: Negative or not required by law. Electronically signed by: Juan Miguel Rangel M.D. 11/26/2019 11:16 AM
--- NOTE | 2019-11-26 12:14 | History & Physical Report ---
Date of Service November 26, 2019 Assessment & Plan (1) Acute appendicitis: This is a 63y F who presents to the [facility] ED on 11/26/19 with complaints of abdominal pain, nausea/vomiting. Patient presented to the hospital with persistent symptoms. Workup revealed a WBC of 14, and CT scan findings con cerning for acute appendicitis without abscess or rupture. Patient is afebrile and VSS. On examination patient is acutely tender to palpation in the RLQ w/ guarding. Based on imaging and physical examination we will decide to take the patient to the OR for a laparoscopic appendectomy.. A preo-op EKG and CXR have been ordered. Patient will remain NPO with IVF and pre-op abx ordered. Pt. seen and examined with Dr. Bunn. History of Present Illness Primary Care Provider: Dariel Munoz MD This is a 63y F who presents to the [facility] ED on 11/26/19 with complaints of abdominal pain, nausea/vomiting. Patient reports the nausea and vomiting started around 2pm yesterday. She thought she ate bad spaghetti sauce, but then she started to develop right lower abdominal pain. Pain and symptoms persisted prompting her to come to the ED today. Workup revealed a WBC of [address] scan concerning for acute appendicitis without free air or abscess. Surgery was consulted for further evaluation. Her last meal was yesterday around lunch. 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 Feels Safe at Home: Yes Smoking Status: Never smoker Hx Alcohol Use: No Hx Substance Use: No Physical Activity Frequency: 3-4 Times per Week Physical Activity Frequency Comment: walks, but now has hurt knee Review of Systems Gastrointestinal: + abdominal pain, + nausea and + vomiting Physical Exam Physical Exam: awake/alert Gastrointestinal (Abdomen): Inspection/Auscultation: abdomen not distended Percussion/Palpation: + abdomen tender (ttp in the RLQ), + guarding (to palpation in the RLQ) and abdomen soft + rovsings signs Results & Data Results & Data ([facility]) Vital Signs (Past 12 Hours) Vital Signs Temp Pulse Pulse Resp BP BP Pulse Ox 11/26/19 11:19 63 18 139/72 99 11/26/19 10:51 72 16 148/88 H 100 11/26/19 08:58 37.1 C 83 18 136/[address] OF THE ABDOMEN AND PELVIS WITH CONTRAST CLINICAL HISTORY: RLQ PAIN, N/V X 18 HOURS COMPARISON STUDY: None. TECHNIQUE: Following IV administration of 94 mL of Optiray-320, axial images of the abdomen and pelvis were obtained from the lung bases to the proximal femurs. Images were reviewed in the axial, sagittal, and coronal planes. IV contrast was administered without complication. Automated exposure control was utilized for the study. A dose lowering technique was utilized adhering to the principles of ALARA. CT DOSE: 417.36 mGy.cm FINDINGS: No pneumatosis, free air or portal venous gas is present. The liver, spleen, adrenal glands, kidneys and pancreas are unremarkable. There are left- sided renal parapelvic cysts. There is no hydronephrosis. No biliary or pancreatic ductal dilatation is identified. There is no evidence for a bowel obstruction. The appendix is dilated, measuring 1.1 cm. The appendix is fluid- filled. Wall thickening of the appendix is noted with mild adjacent inflammation. No free air or abscess is present. No suspicious osseous lesions are noted. Major vasculature is patent. IMPRESSION: Acute appendicitis. No free air or abscess. ACT 112: Negative or not required by law. Electronically signed by: Juan Miguel Rangel M.D. 11/26/2019 11:16 AM Supervising Physician Co-Signing Physician Notes Agree with the history and physical done by Colt BACA Patient is exquisite tenderness localized in right lower quadrant rest of the abdomen is negative CT scan was reviewed We will plan for laparoscopic appendectomy possible open patient is on the schedule for the OR preop antibiotics will be given Risk and complication of surgery were explained to the patient and she would like to proceed accordingly permit has been signed PG Care Time/CCT Total # of Minutes Spent Total Time Spent with Patient: Total time spent is greater than 50% in coordination of care (as documented) at patient's floor/unit and/or counseling patient: Coding Level of Care Code 74250 Initial Inpt Care Lvl 1 Diagnoses Acute appendicitis K35.30 Acute appendicitis type: with localized peritonitis Appendicitis abscess presence: without abscess Appendicitis gangrene presence: without gangrene Appendicitis perforation presence: without perforation (1) Acute appendicitis Acute appendicitis type: with localized peritonitis Appendicitis abscess presence: without abscess Appendicitis gangrene presence: without gangrene Appendicitis perforation presence: without perforation Qualified Code(s): K35.30 - Acute appendicitis with localized peritonitis, without perforation or gangrene
[2019-11-26] MEDS ORDERED: cefOXitin 2,000 MG/60 ML BAG IV STA (12:18)
[2019-11-26] MEDS ORDERED: DEXAMETHASONE SOD INJ 4 MG/ML VIAL ONE (12:29)
[2019-11-26] MEDS ORDERED: LIDOCAINE/EPINEPHRINE 1% 20 ML VIAL ONE (12:30)
[2019-11-26] MEDS ORDERED: LIDOCAINE HCL 2% 2 ML VIAL/AMP(20MG/ML) INFIL ONE (12:30)
[2019-11-26] MEDS ORDERED: ONDANSETRON INJ 2 MG/ML 2 ML VIAL ONE (12:30)
[2019-11-26] MEDS ORDERED: PROPOFOL IV EMULSION 10 MG/ML 20 ML VIAL IV ONE (12:30)
[2019-11-26] MEDS ORDERED: ROCURONIUM BROMIDE 10 MG/ML 5 ML VIAL IV ONE (12:30)
[2019-11-26] MEDS ORDERED: MIDAZOLAM HCL 1 MG/ML 2ML VIAL ONE (12:30)
[2019-11-26] MEDS ORDERED: fentaNYL citrate 100 MCG/2 ML VIAL ONE ×2 (12:30→12:31)
--- NOTE | 2019-11-26 12:33 | XRay Report ---
XR chest 1V portable CLINICAL HISTORY: preop preoperative evaluation COMPARISON STUDY: 09/08/2019 FINDINGS: The bones soft tissues and hemidiaphragms are normal. The cardiomediastinal silhouette is n ormal. The lungs are clear. The pulmonary vasculature is normal. IMPRESSION: Negative chest. ACT 112: Negative or not required by law. The above report was generated using voice recognition software. It may contain grammatical, syntax or spelling errors. Electronically signed by: Juan Villasenor M.D. 11/26/2019 12:31 PM
[2019-11-26] MEDS ORDERED: ATROPINE SULFATE 0.1 MG/ML 10ML SYR IV PRN (12:51)
[2019-11-26] MEDS ORDERED: ONDANSETRON INJ 2 MG/ML 2 ML VIAL IV PRN ×2 (12:51→15:48)
[2019-11-26] MEDS ORDERED: PROMETHAZINE HCL 6.25 MG in SODIUM CHLORIDE 0.9% 50 ML IV PRN (12:51)
[2019-11-26] MEDS ORDERED: ePHEDrine sulfate 50 MG/ML AMP IV PRN (12:51)
[2019-11-26] MEDS ORDERED: fentaNYL citrate 100 MCG/2 ML VIAL IV PRN (12:51)
--- NOTE | 2019-11-26 13:04 | Anesthesiology Consultation ---
Date of Service November 26, 2019 Assessment & Plan (1) Encounter for pre-operative examination: Chart Review Chart Review: Acceptable Risk for Surgery and Patient NOT seen in Pre Admission Testing Consults Requested none ASA [id number] Proposed Anesthesia Anesthesia Type: General Risk / Benefits Reviewed With: PT / POA / Parent / Guardian, Accepts Plan and I nformed Consent Obtained History Surgery Operation Date: 11/26/19 08:20 Proposed Procedures p Laparoscopic Appendectomy - Jonah Penny MD Height/Weight Height: 5 ft 7 in Weight: 72.6 kg Allergies Allergy/AdvReac Type Severity Reaction Status Date / Time iodine Allergy Mild rash Verified 11/26/19 09:33 Medications Home Medications Medication Instructions Recorded Confirmed Last Taken cholecalciferol (vitamin D3) 100 4,000 units PO QAM 05/27/19 11/26/19 11/25/19 mcg (4,000 unit) capsule calcium carbonate [Calcium 500] 500 mg PO QAM 09/08/19 11/26/19 11/25/19 pediatric multivitamin 1 tab PO HS 09/08/19 11/26/19 11/25/19 Active Medications Generic Name Dose Route Start Last Admin Trade Name Freq PRN Reason Stop Dose Admin Ioversol 94 ml 11/26/19 11:00 11/26/19 11:00 Optiray 320 100ml IV 11/30/19 10:59 94 ml ONCE PRN Administration Interaction Checking NPO Date Last Intake of Fluids: 11/26/19 Time Last Intake of Fluids: 07:00 Date Last Intake of Solids: 11/25/19 Time Last Intake of Solids: 13:00 Past Medical History Medical History 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 Rx by Dr Salinas - steroids Exercise / Class Metabolic Activity II 4-5 Yardwork/Stairs/Walk up hill Past Family History Family History Grandmother (Maternal) Colorectal cancer Father , [place] at 63 Myocardial infarction Other Endometriosis Fibroid, uterine Hypertension Past Surgical History Surgical History H/O section Past Anesthesia History No Hx of Anesthesia Complications and No Family Hx of Anesthesia Complications History of PONV No Hx of PONV and No Hx of Motion Sickness Social History Smoking Status: Never smoker Hx Alcohol Use: No Hx Substance Use: No Physical Exam Vital Signs Last Vital Signs Temp 37.1 C 11/26/19 08:58 Pulse 84 11/26/19 12:48 Resp 18 11/26/19 12:48 BP 139/72 11/26/19 12:48 Pulse Ox 95 11/26/19 12:48 ENMT Mouth: no dentition abnormality Thyromental Distance: > or= 3.5 Finger Breadths Mallampati Class: II Neck normal visual inspection Respiratory normal respiratory effort Auscultation: lungs clear to auscultation bilaterally Cardiovascular Rate/Rhythm: regular rate and regular rhythm Psychiatric Orientation: alert Testing Laboratory Results 11/26/19 09:34 11/26/19 09:34 Urine Color Dark Yellow 11/26/19 10:00 Urine Appearance Turbid (Clear) A 11/26/19 10:00 Urine pH 5.0 (4.5-7.5) 11/26/19 10:00 Ur Specific Butler 1.027 (1.000-1.030) 11/26/19 10:00 Urine Protein 1+ (Negative) H 11/26/19 10:00 Urine Glucose (UA) Negative (Negative) 11/26/19 10:00 Urine Ketones 1+ (Negative) H 11/26/19 10:00 Urine Nitrite Negative (Negative) 11/26/19 10:00 Ur Leukocyte Esterase Negative (Negative) 11/26/19 10:00 Urine WBC (Auto) 10-30 /hpf (0-5) H 11/26/19 10:00 Urine RBC (Auto) 10-30 /hpf (0-4) H 11/26/19 10:00 U Hyaline Cast (Auto) 1-5 /lpf (0-5) 11/26/19 10:00 U Epithel Cells (Auto) >30 /lpf (0-5) H 11/26/19 10:00 Urine Bacteria (Auto) 1+ (Negative) H 11/26/19 10:00
[2019-11-26] MEDS ORDERED: SUCCINYLCHOLINE CHLORIDE 20 MG/ML 10 ML VIAL IV ONE (13:56)
[2019-11-26] MEDS ORDERED: NEOSTIGMINE METHYLSULFATE 5 MG/5 ML SYR ONE (14:07)
[2019-11-26] MEDS ORDERED: GLYCOPYRROLATE 0.2 MG/ML VIAL ONE (14:07)
--- NOTE | 2019-11-26 14:37 | Post Operative Brief Note ---
PG Immediate Post Op with CF Date of Surgery November 26, 2019 Pre & Post Diagnosis Operation Date: 11/26/19 08:20 Pre-Op Diagnosis: Acute Appendicitis Post-Op Diagnosis: Acute Appendicitis I identified the patient and participated in the time-out.: Yes Procedure Operation Date: 11/26/19 08:20 Actual Procedures p Laparoscopic Appendectomy - Jonah Penny MD Surgeon Jonah Penny MD Ink Technician Colt BACA Estimated Blood Loss 5 Findings Consistent with Post-Op Diagnosis Specimens Specimen Description: A. Appendix
--- NOTE | 2019-11-26 14:46 | Operative Report ---
PG Post Operative Report Pre & Post Diagnosis Operation Date: 11/26/19 08:20 Pre-Op Diagnosis: Acute Appendicitis Post-Op Diagnosis: Acute Appendicitis I identified the patient and participated in the time-out.: Yes Procedure Operation Date: 11/26/19 08:20 Actual Procedures p Laparoscopic Appendectomy - Jonah Penny MD The patient was brought into the operating theater general endotracheal anesthesia waiting 20 minutes for coronavirus regulation the abdomen was then prepped with Hibiclens properly draped systemic biotic on board timeout was had patient was identified made a small incision supraumbilically sufficient for a Veress needle followed by CO2 followed by 5 mm trocar point of i entry inspected no injury identified we looked at the right lower quadrant could not see the appendix on direct visualization with preemptive local analgesic we placed a 5 mm right upper quadrant trocar at this point with a grasper I was able to identify what looks like an acutely inflamed appendix the terminal ileum was adherent to the mesentery at this point I could I converted the 5 mm umbilical port to 11 mm on direct visualization and that 5 mm port was placed in left lower quadrant with preemptive local analgesic on direct visualization the camera was placed in that area then using the to force we created a window around the base of the appendix and the appendix was not ruptured but had a fibrinous exudate some areas appeared bluish in color once we created a window we used a blue application and divided the appendix off the cecum we need another application since we had a little bit redundant tissue the mesoappendix was taken down using 10 mm clips on direct visualization once this is freed hemostasis was excellent we placed the appendix in an Endopouch and taken out through the umbilical port 11 mm trocar reinserted we checked the right lower quadrant hemostasis was excellent the terminal ileum was well away from the appendiceal stump the wounds were closed with fascial stitch 0 Vicryl x3 and umbilical opening then 4-0 Monocryl Steri-Strips applied procedure was tolerated well by the patient estimated blood loss 5 cc addendumColt BACA was present throughout the procedure and help with retraction camera work and wound closure Surgeon Jonah Penny MD Web Portal Developer Colt BACA Estimated Blood Loss 5 Findings Consistent with Post-Op Diagnosis Specimens appendix Description of Procedure merda I attest to the content of the Intraoperative Record and any orders documented therein. Any exceptions are noted below.
--- NOTE | 2019-11-26 15:23 | Anesthesiology Progress Note ---
Date of Service November 26, 2019 Anesthesia Post Procedure Vital Signs Vital Signs: Temp Pulse Pulse Pulse Resp BP BP 11/26/19 15:15 63 18 127/59 L 11/26/19 15:05 36.7 C 61 15 119/64 11/26/19 13:00 36.9 C 88 18 11/26/19 12:48 84 18 139/72 11/26/19 11:19 63 18 11/26/19 10:51 72 16 11/26/19 08:58 37.1 C 83 18 136/90 BP Pulse Ox 11/26/19 15:15 99 11/26/19 15:05 99 11/26/19 13:00 143/83 H 96 11/26/19 12:48 95 11/26/19 11:19 139/72 99 11/26/19 10:51 148/88 H 100 11/26/19 08:58 98 Pain Intensity Abdomen: Pain Intensity: 0 Transfer of Care Handoff Completed per policy Notes Mental Status: alert / awake / arousable Patient Amnestic to Procedure: Yes Nausea / Vomiting: adequately controlled Pain: adequately controlled Airway Patency, RR, SpO2: stable & adequate BP & HR: stable & adequate Hydration State: stable & adequate Anesthetic Complications: no major complications apparent
--- NOTE | 2019-11-26 15:33 | Electrocardiogram Report ---
Test Reason : Blood Pressure : / mmHG Vent. Rate : 071 BPM Atrial Rate : 071 BPM P-R Int : 160 ms QRS Dur : 092 ms QT Int : 384 ms P-R-T Axes : 033 007 036 degrees QTc Int : 417 ms Normal sinus rhythm Normal ECG When compared with ECG of 08-SEP-2019 12:40, No significant change was found Confirmed by Joe Kumar ([id number]) on 11/26/2019 3:33:07 PM Referred By: REFERRED SELF Confirmed By:Johnathan Kumar
[2019-11-26] MEDS ORDERED: MoRPHine SULFATE 10 MG/ML CARP/VIAL IV PRN (15:48)
[2019-11-26] MEDS ORDERED: OXYCODONE/ACETAMINOPHEN 5mg/325mg TAB PO PRN ×2 (15:48)
[2019-11-26] MEDS ORDERED: MoRPHine SULFATE 4 MG/ML 1 ML CARP\\VIAL IV PRN (15:48)
[2019-11-26] MEDS: LACTATED RINGER'S 1,000 ML IV SCH (17:08)
[2019-11-27] MEDS: LACTATED RINGER'S 1,000 ML IV SCH (05:20)
[2019-11-27 06:36] LABS: Hematocrit (blood only) 41.9 % (37-47); Hemoglobin 13.3 g/dL (12.0-16.0); Mean Corpuscular Hemoglobin 29.2 pg (25-34); Mean Corpuscular Hgb Conc 31.7 g/dL (32-36); Mean Corpuscular Volume 92.1 fL (80-100); Mean Platelet Volume 12.3 fL (7.4-10.4); Platelet Count 192 K/uL (130-400); RDW Coefficient of Variation 13.4 % (11.5-14.5); RDW Standard Deviation 44.8 fL (36.4-46.3); Red Blood Count 4.55 M/uL (4.2-5.4); White Blood Count 12.84 K/uL (4.8-10.8)
[2019-11-27 07:12] LABS: BUN Creatinine Ratio 18.8 (10-20); Calcium 8.9 mg/dl (8.5-10.1); Creatinine Clr Calc Pharmacy 74.4 ml/min; Est GFR (African American) 84.5; Est GFR (Non-African American) 72.9; Potassium 3.9 mmol/L (3.5-5.1)
--- NOTE | 2019-11-27 09:36 | Surgery Progress Note ---
Date of Service November 27, 2019 Assessment & Plan (1) Acute appendicitis: POD#1 laparoscopic appendectomy pt clinically doing well WBC coming down, 12 today tolerating a regular diet pain manageable, incisions c/d/i will discharge to home with instructions to follow up within 1 week pt seen and examined with Dr. Penny Subjective Patient says she feels well. Tolerating a diet. Pain managable. Physical Exam Physical Exam: awake/alert Gastrointestinal (Abdomen): Inspection/Auscultation: + abdominal surgical incision (c/d/i with steristrips) Percussion/Palpation: abdomen soft Results & Data Vital Signs (Past 12 Hours) Vital Signs Temp Pulse Resp BP Pulse Ox 11/27/19 07:25 36.8 C 54 L 16 150/81 H 98 11/27/19 03:58 36.7 C 53 L 14 133/74 95 11/26/19 23:49 37.0 C 60 14 115/58 L 94 PG Care Time/CCT Total # of Minutes Spent Total Time Spent with Patient: Total time spent is greater than 50% in coordination of care (as documented) at patient's floor/unit and/or counseling patient: Coding Level of Care Code None Diagnoses Acute appendicitis K35.30 Acute appendicitis type: with localized peritonitis Appendicitis abscess presence: without abscess Appendicitis gangrene presence: without gangrene Appendicitis perforation presence: without perforation (1) Acute appendicitis Acute appendicitis type: with localized peritonitis Appendicitis abscess presence: without abscess Appendicitis gangrene presence: without gangrene Appendicitis perforation presence: without perforation Qualified Code(s): K35.30 - Acute appendicitis with localized peritonitis, without perforation or gangrene
--- NOTE | 2019-12-02 08:17 | Discharge Summary ---
Date of Service December 02, 2019 Admission HPI Per Admitting Provider This is a 63y F who presents to the [facility] ED on 11/26/19 with complaints of abdominal pain, nausea/vomiting. Patient reports the nausea and vomiting started around 2pm yesterday. She thought she ate bad spaghetti sauce, but then she started to develop right lower abdominal pain. Pain and symptoms persisted prompting her to come to the ED today. Workup revealed a WBC of [address] scan concerning for acute appendicitis without free air or abscess. Surgery was consulted for further evaluation. Her last meal was yesterday around lunch. Principal Diagnosis Acute appendicitis Discharge Data Allergies Allergy/AdvReac Type Severity Reaction Status Date / Time iodine Allergy Mild rash Verified 11/26/19 09:33 Procedures Performed Operation Date: 11/26/19 08:20 Actual Procedures p Laparoscopic Appendectomy - Jonah Penny MD Ordered Studies 11/26/19 10:33 CT abd pelvis IV con only Stat Hospital Course (1) Acute appendicitis: POD#1 laparoscopic appendectomy pt clinically doing well WBC coming down, 12 today tolerating a regular diet pain manageable, incisions c/d/i will discharge to home with instructions to follow up within 1 week pt seen and examined with Dr. Penny Total Time Total Time Spent Total Time Spent (In Minutes): 10 minutes Discharge Plan Discharge Items Patient Disposition: Home - Self-Care Reason For Visit: APPENDICITIS Discharge Diagnosis: laparoscopic appendectomy Activity: Per Instructions section Lifting: No more than 10 pounds Bathing Comment: may shower, no soaking in tubs Exercise/Sports: Wait until after follow-up appointment Driving/Machine Use: Resume 3 days after discharge Non-emergency contact: Surgeon Call non-emergency contact if: you have any medication questions, your symptoms worsen, your pain is not controlled, your pain is worsening, your pain is unusual for you, you have a fever, your temperature is above 101.5, your wound has increased redness, your wound has increased drainage and your wound pain has increased Follow-up/Referrals: Jonah Penny MD [Surgeon] - (Please call to schedule follow up in clinic within 1 week) Dariel Munoz MD [Primary Care Provider] - Diet: Regular Addtl Attending Provider Instructions: You have small white bandages over your incisions called steri-strips that will fall off on their own within 7-10 days Pending Studies at Discharge: Yes Studies:: surgical pathology Stand-Alone Forms: [facility] Medications and DC Order Prescriptions: New oxycodone-acetaminophen [Percocet] 5-325 mg tablet 1 - 2 tab PO .q4-6h PRN (Reason: pain, for initial therapy, max 6 tabs per day) Qty: 12 RF: 0 Continued Vitamin D3 4,000 unit capsule 4,000 units PO QAM RF: 0 pediatric multivitamin Tablet,Chewable 1 tab PO HS RF: 0 calcium carbonate [Calcium 500] 500 mg calcium (1,250 mg) Tablet,Chewable 500 mg PO QAM RF: 0 Discharge Orders: Discharge Order (Routine); Ordered 11/27/19 Ordered By: Liya Mejia Admission Data Admit Date/Time: 11/26/19 15:05 Attending Provider: Jonah Penny Admit Provider: Jonah Penny Primary Care Provider: Dariel Munoz Other Interventions: Discharge Summary Assessment (RN) Last Done: 11/27/19 10:06 DC Date/Time DO NOT enter until pt leaves facility: 11/27/19 12:00 Supervising Physician Co-Signing Physician Notes Patient admitted acute appendicitis was taken for surgery laparoscopic appendectomy performed patient did well by 24 hours she was able to eat minimal pain and discharged instructions any been given regarding wound care diet and activity Coding Level of Care Code D/C Day Management <30 mins Diagnoses Acute appendicitis K35.30 Acute appendicitis type: with localized peritonitis Appendicitis abscess presence: without abscess Appendicitis gangrene presence: without gangrene Appendicitis perforation presence: without perforation
== END 2019-11-27 12:00 | disposition home or self-care (01) ==
LOC: ED 08:54 → ASU 12:37 → 3N 12:37
DX: K35.30 Acute appendicitis with localized peritonitis, without perforation or gangrene